=== PATIENT | female | born 1980 | race Caucasian/White ===

== ENCOUNTER → 2017-10-07 | Outpatient (CLI) | payer OTHER ==
[~2017-10-07] MED LIST: ALBU90OI; ALBU90OI INH; AMIT50 PO; AMOX500 PO; AZIT250 PO; CIPR500 PO; DOXY100 PO; ESCI20 PO; GUAPSEER PO; HYDACE5; HYDACE5 PO; IBUP600 PO; KETO10 PO; MIGRAINE MED; MONT10T; NAPR550 PO; NITR100CA PO; OMEP20ER PO; ONDA4ODT MM; OXYACE5T PO; PENVK500 PO; PHENA200 PO; PRED20 PO; PROM25 PO; Permethrin60 GM TP; Prednisone20 MG PO; RXHYDACE PO; RXNAPNA550 PO; RXPROM25 PO; SULTRIDS PO; VERAPAMIL PO; [UNRECOGNIZED DRUG - OTHER] MC; [UNRECOGNIZED DRUG - OTHER] PO
== END | disposition home or self-care (01) ==
LOC: LAB EV 18:30 → LAB SHORT 18:30
DX: Z09 Encounter for follow-up examination after completed treatment for conditions other than malignant neoplasm (principal); Z86.14 Personal history of Methicillin resistant Staphylococcus aureus infection
CPT/HCPCS: 87081

== ENCOUNTER → 2019-01-10 | Outpatient (CLI) | payer OTHER ==
[2019-01-10 14:09] LABS: BASOPHILS ABSOLUTE AUTO 0.07 K/mm3 (0.00-0.23); BASOPHILS PERCENT AUTO 1 % (0-2); EOSINOPHILS ABSOLUTE AUTO 0.33 K/mm3 (0.00-0.68); EOSINOPHILS PERCENT AUTO 2 % (0-6); Hematocrit 41.9 % (33.0-51.0); Hemoglobin 13.9 g/dL (11.5-16.0); IMMATURE GRAN ABSOLUTE AUTO 0.05 K/mm3 (0.00-0.10); IMMATURE GRAN PERCENT AUTO 0 % (0-1); LYMPHOCYTES ABSOLUTE AUTO 3.63 K/mm3 (0.84-5.20); LYMPHOCYTES PERCENT AUTO 26 % (21-46); MONOCYTES ABSOLUTE AUTO 0.77 K/mm3 (0.16-1.47); MONOCYTES PERCENT AUTO 6 % (4-13); Mean Corpuscular HGB 29.6 pg (26.0-34.0); Mean Corpuscular HGB Conc 33.2 g/dL (31.5-36.5); Mean Corpuscular Volume 89 fL (80-100); Mean Platelet Volume 10.3 fL (9.1-12.4); NEUTROPHILS ABSOLUTE AUTO 8.97 K/mm3 (1.96-9.15); NEUTROPHILS PERCENT AUTO 65 % (41-73); Platelet Count 409 K/mm3 (150-400); RDW Coefficient Variation 13.1 % (11.7-14.2); RDW Standard Deviation 42.5 fL (35.1-46.3); Red Blood Cell Count 4.69 M/mm3 (3.80-5.20); White Blood Cell Count 13.82 K/mm3 (4.00-11.30)
[2019-01-10 14:19] LABS: Alanine Aminotransfer (ALT/SGP 56 U/L (12-78); Albumin, Blood 3.5 g/dL (3.4-5.0); Alk Phos 68 U/L (40-126); Anion Gap 12 mmol/L (6-16); Aspartate Aminotrans (AST/SGOT 26 U/L (12-37); Bilirubin, Total 0.3 mg/dL (0.1-1.0); Blood Urea Nitrogen 12 mg/dL (8-24); CO2, Blood 25 mmol/L (21-32); Chloride, Blood 104 mmol/L (98-108); Creatinine, Blood 0.86 mg/dL (0.40-1.00); Globulin, Blood 3.6 g/dL (2.2-4.0); Glomerular Filtration Rate >60 (60-); Glucose, Blood 164 mg/dL (70-99); Potassium, Blood 3.9 mmol/L (3.5-5.5); Sodium, Blood 141 mmol/L (136-145); Total Protein, Blood 7.1 g/dL (6.4-8.2)
== END ==
LOC: LAB SHORT 14:04 → LAB EV 14:04
PROVIDERS: Emergency Medicine
DX: R10.11 Right upper quadrant pain (principal)
CPT/HCPCS: 80053; 83690; 85025

== ENCOUNTER 2020-02-16 08:54 | Day surgery (SDC) | payer OTHER ==
[~2020-02-16] VITALS: Ht 162.6 cm; Wt 134.1 kg
[~2020-02-16 08:54] MED LIST changes: +ALBU8HFA2 INH; +Imitrex50 MG PO; +RIZATRIPTAN10 MG SL; +TROKENDI XR50 MG PO
[2020-02-16] MEDS ORDERED: Prinivil10 MG (09:12)
[2020-02-16] MEDS ORDERED: CYCL10 PR (09:12)
[2020-02-16] MEDS ORDERED: CYCL10 PO (09:13)
--- NOTE | 2020-02-16 12:24 | NUR ---
02/16/20 1224 Angelina Schrader PT WITH CONT NAUSEA. IV ZOFRAN GIVEN BY HIRAL WALTERS IN PACU. PT RX'D WITH 12.5MG PHENERGAN IV FOR CONT NAUSEA. VSS. DENIES PAIN. CONT TO MONITOR.
== END 2020-02-16 12:52 | disposition home or self-care (01) ==
LOC: ORSCSDS 08:54
PROVIDERS: Obstetrics & Gynecology
PROC: 0UB14ZZ Excision of Left Ovary, Percutaneous Endoscopic Approach (ICD-10-PCS; principal; 2020-02-16 10:00)
DX: N92.1 Excessive and frequent menstruation with irregular cycle (principal); N94.6 Dysmenorrhea, unspecified; N80.3 Endometriosis of pelvic peritoneum; N94.10 Unspecified dyspareunia; N83.02 Follicular cyst of left ovary; K66.0 Peritoneal adhesions (postprocedural) (postinfection); I10 Essential (primary) hypertension; J45.909 Unspecified asthma, uncomplicated; Z87.891 Personal history of nicotine dependence; Z79.899 Other long term (current) drug therapy; E66.01 Morbid (severe) obesity due to excess calories; Z68.43 Body mass index [BMI] 50.0-59.9, adult
CPT/HCPCS: 88305; J0171; J0690; J1100; J1885; J2001; J2250; J2370; J2405; J2550; J2704; J3010; J7120

== ENCOUNTER 2020-06-07 10:55 | Emergency (ER) | payer OTHER ==
[~2020-06-07] VITALS: Ht 165.1 cm; Wt 135.2 kg
[~2020-06-07 10:55] MED LIST changes: +CYCL10 PO; +CYCL10 PR; +Prinivil10 MG
[2020-06-07 11:49] LABS: BASOPHILS PERCENT AUTO 1 % (0-2); EOSINOPHILS ABSOLUTE AUTO 0.61 K/mm3 (0.00-0.68); EOSINOPHILS PERCENT AUTO 5 % (0-6); Hematocrit 43.4 % (33.0-51.0); Hemoglobin 14.1 g/dL (11.5-16.0); IMMATURE GRAN ABSOLUTE AUTO 0.05 K/mm3 (0.00-0.10); IMMATURE GRAN PERCENT AUTO 0 % (0-1); LYMPHOCYTES ABSOLUTE AUTO 4.21 K/mm3 (0.84-5.20); LYMPHOCYTES PERCENT AUTO 35 % (21-46); MONOCYTES ABSOLUTE AUTO 0.75 K/mm3 (0.16-1.47); MONOCYTES PERCENT AUTO 6 % (4-13); Mean Corpuscular HGB 28.8 pg (26.0-34.0); Mean Corpuscular HGB Conc 32.5 g/dL (31.5-36.5); Mean Corpuscular Volume 89 fL (80-100); Mean Platelet Volume 11.2 fL (9.1-12.4); NEUTROPHILS ABSOLUTE AUTO 6.32 K/mm3 (1.96-9.15); NEUTROPHILS PERCENT AUTO 53 % (41-73); Platelet Count 341 K/mm3 (150-400); RDW Standard Deviation 42.5 fL (35.1-46.3); Red Blood Cell Count 4.89 M/mm3 (3.80-5.20); White Blood Cell Count 12.04 K/mm3 (4.00-11.30)
[2020-06-07 12:19] LABS: Alanine Aminotransfer (ALT/SGP 97 U/L (12-78); Albumin, Blood 3.5 g/dL (3.4-5.0); Albumin/Globulin Ratio 0.9 (0.8-1.8); Alk Phos 72 U/L (50-136); Anion Gap 8 mmol/L (6-16); Aspartate Aminotrans (AST/SGOT 47 U/L (12-37); Bilirubin, Total 0.6 mg/dL (0.1-1.0); Blood Urea Nitrogen 11 mg/dL (8-24); Bun/Creatinine Ratio 16.4 (12.0-20.0); CO2, Blood 23 mmol/L (21-32); Calcium, Blood 9.2 mg/dL (8.5-10.1); Chloride, Blood 108 mmol/L (98-108); Creatinine, Blood 0.67 mg/dL (0.40-1.00); Globulin, Blood 4.1 g/dL (2.2-4.0); Glomerular Filtration Rate >60 (60-); Glucose, Blood 215 mg/dL (70-99); Potassium, Blood 3.7 mmol/L (3.5-5.5); Sodium, Blood 139 mmol/L (136-145); Total Protein, Blood 7.6 g/dL (6.4-8.2); Troponin I <0.015 ng/mL (0.000-0.040)
[2020-06-07] MEDS ORDERED: Toprol Xl25 MG PO (13:30)
== END 2020-06-07 13:45 | disposition home or self-care (01) ==
LOC: ER 10:55
PROVIDERS: Emergency Medicine
DX: I49.3 Ventricular premature depolarization (principal); I10 Essential (primary) hypertension; J45.909 Unspecified asthma, uncomplicated; Z79.899 Other long term (current) drug therapy; Z91.041 Radiographic dye allergy status
CPT/HCPCS: 36415; 71045; 80053; 84443; 84484; 85025; 85379; 93005; 93010; 99285-25; J7030

== ENCOUNTER 2021-10-26 11:21 | Emergency (ER) | payer OTHER ==
[~2021-10-26] VITALS: Ht 165.1 cm; Wt 122.5 kg
[~2021-10-26 11:21] MED LIST changes: +Toprol Xl25 MG PO
[2021-10-26] MEDS ORDERED: HYDR1TAB94 PO (15:05)
== END 2021-10-26 15:51 | disposition home or self-care (01) ==
LOC: ER 11:21
DX: S82.851A Displaced trimalleolar fracture of right lower leg, initial encounter for closed fracture (principal); S93.04XA Dislocation of right ankle joint, initial encounter; I10 Essential (primary) hypertension; J45.909 Unspecified asthma, uncomplicated; W01.0XXA Fall on same level from slipping, tripping and stumbling without subsequent striking against object, initial encounter; Z79.899 Other long term (current) drug therapy
CPT/HCPCS: 73600; 73610; J1170; J2405; J2704; J7030

== ENCOUNTER 2021-10-26 17:18 | Emergency (ER) | payer OTHER ==
[~2021-10-26] VITALS: Ht 165.1 cm; Wt 121.6 kg
[~2021-10-26 17:18] MED LIST changes: +HYDR1TAB94 PO
== END 2021-10-26 18:06 | disposition home or self-care (01) ==
LOC: ER 17:18
DX: S82.851D Displaced trimalleolar fracture of right lower leg, subsequent encounter for closed fracture with routine healing (principal); X58.XXXD Exposure to other specified factors, subsequent encounter; Z79.899 Other long term (current) drug therapy; Z91.048 Other nonmedicinal substance allergy status
CPT/HCPCS: A9270

== ENCOUNTER 2021-11-03 11:06 | Day surgery (SDC) | payer OTHER ==
[~2021-11-03] VITALS: Ht 165.1 cm; Wt 125.0 kg
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
[2021-11-03] MEDS ORDERED: ACETAMINOPHEN500 MG PO (11:59)
[2021-11-03] MEDS ORDERED: METO50 PO (12:02)
[2021-11-03] MEDS ORDERED: ZOLOFT50 MG PO (12:06)
--- NOTE | 2021-11-03 16:31 | NUR ---
PT TAKING SIPS OF SODA AND SMALL BITES OF GERALD CRACKERS. PT ABLE TO TAKE DEEP BREATHS AND COUGH.
--- NOTE | 2021-11-03 16:46 | NUR ---
PT AT BEDSIDE. PT GIVEN PO PAIN MEDICATION
--- NOTE | 2021-11-03 17:07 | NUR ---
Pre-Op teaching done. Pt verbalizes understanding. Discharge instructions reviewed with patient. Patient verbalizes understanding. Copy given to patient to take home. Discharged via wheelchair to private car for ride home.
== END 2021-11-03 17:10 | disposition home or self-care (01) ==
LOC: ORSCMMR 11:06 → ORD 14:30 → ORSCMMR 14:30
PROVIDERS: Orthopaedic Surgery
PROC: 0QSJ04Z Reposition Right Fibula with Internal Fixation Device, Open Approach (ICD-10-PCS; principal; 2021-11-03 12:30)
PROC: 0QSG04Z Reposition Right Tibia with Internal Fixation Device, Open Approach (ICD-10-PCS; principal; 2021-11-03 12:30)
DX: S82.851A Displaced trimalleolar fracture of right lower leg, initial encounter for closed fracture (principal); I10 Essential (primary) hypertension; J44.9 Chronic obstructive pulmonary disease, unspecified; Z87.891 Personal history of nicotine dependence; E11.9 Type 2 diabetes mellitus without complications; E66.01 Morbid (severe) obesity due to excess calories; Z68.42 Body mass index [BMI] 45.0-49.9, adult; Z79.899 Other long term (current) drug therapy; Z79.84 Long term (current) use of oral hypoglycemic drugs; W01.0XXA Fall on same level from slipping, tripping and stumbling without subsequent striking against object, initial encounter; Y93.K1 Activity, walking an animal; Z68.41 Body mass index [BMI] 40.0-44.9, adult
CPT/HCPCS: 82947; A9270; C1713; C1769; J0690; J1100; J1885; J2250; J2405; J2704; J2710; J2765; J3010; J7120